=== PATIENT | male | born 1985 | race African-American/Black ===

== ENCOUNTER 2017-12-11 17:18 | Outpatient (CLI) | payer OTHER ==
[~2017-12-11 17:18] MED LIST: MEDROLPACK PO; VASOTEC20 M1 PO
== END 2017-12-11 17:46 | disposition home or self-care (01) ==
LOC: LAB 17:18
DX: E78.5 Hyperlipidemia, unspecified (principal); E55.9 Vitamin D deficiency, unspecified; R53.1 Weakness; R51 Headache; E03.8 Other specified hypothyroidism

== ENCOUNTER 2018-04-18 09:36 | Outpatient (CLI) | payer OTHER | END 2018-04-18 09:42 | disposition home or self-care (01) | LOC: RAD 501 09:36 | DX: M54.5 Low back pain (principal) ==

== ENCOUNTER 2018-05-08 13:55 | Outpatient (CLI) | payer OTHER | END 2018-05-08 16:59 | disposition home or self-care (01) | LOC: NUCLEAR 13:55 | DX: M81.0 Age-related osteoporosis without current pathological fracture (principal); E55.9 Vitamin D deficiency, unspecified ==

== ENCOUNTER 2018-05-08 14:39 | Outpatient (CLI) | payer OTHER | END 2018-05-08 14:46 | disposition home or self-care (01) | LOC: LAB 14:39 | DX: E55.9 Vitamin D deficiency, unspecified (principal); M85.9 Disorder of bone density and structure, unspecified ==

== ENCOUNTER 2018-05-14 15:11 | Outpatient (CLI) | payer OTHER | END 2018-05-14 15:20 | disposition home or self-care (01) | LOC: TOM 15:11 | DX: M25.571 Pain in right ankle and joints of right foot (principal); M24.571 Contracture, right ankle ==

== ENCOUNTER 2018-06-03 09:22 | Outpatient (CLI) | payer OTHER ==
[2018-06-07] MEDS ORDERED: NAPR500T14 PO (16:45)
== END 2018-06-03 09:26 | disposition home or self-care (01) ==
LOC: EKG 09:22
DX: D68.8 Other specified coagulation defects (principal); T84.84XS Pain due to internal orthopedic prosthetic devices, implants and grafts, sequela; Z76.89 Persons encountering health services in other specified circumstances; I49.8 Other specified cardiac arrhythmias

== ENCOUNTER 2018-06-10 05:50 | Day surgery (SDC) | payer OTHER ==
[~2018-06-10 05:50] MED LIST changes: +NAPR500T14 PO
== END 2018-06-10 15:01 | disposition home or self-care (01) ==
LOC: CIR.AMB 05:50
DX: M66.361 Spontaneous rupture of flexor tendons, right lower leg (principal); M65.871 Other synovitis and tenosynovitis, right ankle and foot; T84.84XA Pain due to internal orthopedic prosthetic devices, implants and grafts, initial encounter

== ENCOUNTER → 2018-06-26 12:28 | Outpatient (CLI) | payer OTHER ==
[~2018-06-26 12:28] MED LIST changes: +KEFLEX500 MG PO
== END | disposition home or self-care (01) ==
LOC: LAB 12:28
DX: D64.89 Other specified anemias (principal); E88.89 Other specified metabolic disorders; D68.8 Other specified coagulation defects; N39.0 Urinary tract infection, site not specified; A49.02 Methicillin resistant Staphylococcus aureus infection, unspecified site

== ENCOUNTER → 2018-06-28 | Day surgery (SDC) | payer OTHER | END | disposition home or self-care (01) | LOC: CIR.AMB 07:13 | DX: M65.871 Other synovitis and tenosynovitis, right ankle and foot (principal); M01.X71 Direct infection of right ankle and foot in infectious and parasitic diseases classified elsewhere ==

== ENCOUNTER → 2018-09-11 17:34 | Outpatient (CLI) | payer OTHER | END | disposition home or self-care (01) | LOC: LAB 17:34 | DX: J03.80 Acute tonsillitis due to other specified organisms (principal); N39.0 Urinary tract infection, site not specified; Z11.4 Encounter for screening for human immunodeficiency virus [HIV] ==

== ENCOUNTER 2019-01-03 14:52 | Outpatient (CLI) | payer OTHER | END 2019-01-03 15:46 | disposition home or self-care (01) | LOC: LAB 14:52 | DX: Z11.3 Encounter for screening for infections with a predominantly sexual mode of transmission (principal) ==

== ENCOUNTER → 2019-01-03 | Outpatient (CLI) | payer OTHER | END | disposition home or self-care (01) | LOC: RAD 501 14:14 | DX: M24.571 Contracture, right ankle (principal) ==

== ENCOUNTER → 2019-01-06 | Outpatient (CLI) | payer OTHER | END | disposition home or self-care (01) | LOC: RAD 501 14:10 | DX: S39.012A Strain of muscle, fascia and tendon of lower back, initial encounter (principal) ==

== ENCOUNTER 2019-01-30 14:09 | Outpatient (CLI) | payer OTHER | END 2019-01-30 14:11 | disposition home or self-care (01) | LOC: TOM 14:09 | DX: J34.2 Deviated nasal septum (principal); J32.8 Other chronic sinusitis ==

== ENCOUNTER 2020-10-22 08:49 | Outpatient (CLI) | payer OTHER | END 2020-10-22 09:01 | disposition home or self-care (01) | LOC: SONOGRAMA 08:49 | DX: K82.8 Other specified diseases of gallbladder (principal); R10.84 Generalized abdominal pain; R05 Cough; R50.9 Fever, unspecified ==